=== PATIENT | female | born 1960 | race Caucasian/White ===

== ENCOUNTER → 2017-04-25 | Outpatient (CLI) | payer OTHER ==
[~2017-04-25] VITALS: Ht 157.5 cm; Wt 59.0 kg
[~2017-04-25] MED LIST: NASACORT10.8 ML NASAL
--- NOTE | ~2017-04-25 | P ---
[facility] [address] [place] [address] PROCEDURE REPORT Name: FARNAZ REINA Room #: [facility]ENTERPietro.#: [id number] Admission: 04/25/17 Attend Phys: Mat Jean MD Discharge: Date of : 56 Report #: [id number] THIS REPORT FOR: //name// CC: Mat Rose MD BRIEF HISTORY: The patient is a 56-year-old woman with history of colon adenoma, for surveillance colonoscopy due to history of colon polyps. PREOPERATIVE DIAGNOSIS: History of colon polyps. POSTOPERATIVE DIAGNOSIS: Diminutive polyp at 60 cm. MEDICATIONS: Deep sedation with propofol per anesthesia. SPECIMEN: Polyp from 60 cm. ESTIMATED BLOOD LOSS: 3 mL. PROCEDURE: Colonoscopy to cecum and terminal ileum with cold snare polypectomy. FINDINGS: Prior to propofol sedation, the procedure of colonoscopy discussed with the patient as well as potential risks, benefits, and complications. She indicates she understands and desires to proceed. With the patient in left lateral decubitus position, digital examination was completed, which revealed no abnormalities. Subsequently, the eeGeo video colonoscope was introduced into the rectum, advanced under direct vision to the cecum. Done with minimal difficulty. The cecum was identified by the ileocecal valve and the appendiceal orifice. I was able to visualize the distal segment of the terminal ileum, which was inspected and noted to be unremarkable. At that point, the scope was slowly withdrawn and careful circumferential views obtained including retroflexing the scope in the ascending colon. Upon slow withdrawal of the scope, the prep was excellent. The mucosa was within normal limits, normal vascular pattern, and normal light reflex. As we withdrew the scope, no mucosal abnormalities were seen. As we withdrew the scope, she was found to have a diminutive polyp at 60 cm, which was removed by cold snare polypectomy and recovered. The scope was further withdrawn and no additional lesions were seen. Scope was withdrawn in the rectum. Upon retroflexion, no abnormalities were seen. Scope was withdrawn. The patient tolerated the procedure well. CONDITION OF THE PATIENT UPON DISCHARGE: Following procedure, the patient drowsy, aroused, conversant and will be discharged home when fully ambulatory. INSTRUCTIONS TO THE PATIENT AND FAMILY AT THE TIME OF DISCHARGE: We will follow [address] [address] PROCEDURE REPORT Name: FARNAZ REINA Room #: [facility]ENTEREllyn.#: [id number] Admission: 04/25/17 Attend Phys: Mat Jean MD Discharge: Date of : 56 Report #: [id number] up on the path report of the polyp. If it is an adenomatous lesion, I would suggest a followup colon exam in 5 years. If the lesion is not neoplastic and is hyperplastic, 10 years would be indicated. She will otherwise return to the care of Dr. Katie Rose and return to see me as needed. Last colonoscopy was 5 years ago. Withdrawal time from the cecum was 14 minutes and 42 seconds. By: [id number] Mat Jean MD /nt
--- NOTE | ~2017-04-25 | S ---
[facility] [address] [place] [address] SURGICAL PATH RPT PROCEDURE Name: FARNAZ REINA Room #: REG FRED Osullivan.#: [id number] Admission: 04/25/17 Date of : 56 Discharge: Report #: [id number] Path Case #: [id number] PATHOLOGY REPORT DRAFT COLLECTION DATE: 04/25/2017 RECEIVED DATE: 04/26/2017 SPECIMEN(S) RECEIVED: A.Elvis 60 cm
== END | disposition home or self-care (01) ==
LOC: GI 07:30
DX: D12.4 Benign neoplasm of descending colon (principal); D64.9 Anemia, unspecified; Z98.890 Other specified postprocedural states; Z88.6 Allergy status to analgesic agent
CPT/HCPCS: 62110; 62900